=== PATIENT | male | born 1980 | race Caucasian/White ===

== ENCOUNTER 2021-01-21 12:48 | Inpatient (IN) | payer MEDICAID ==
[~2021-01-21] VITALS: Ht 175.3 cm; Wt 90.9 kg
[2021-01-21] MEDS ORDERED: dexamethasone sod phosphate 10mg/ml inj IV STA (13:43)
[2021-01-21 13:50] LABS: BASOPHILS % (AUTO) 0.2 % (0-1); EOSINOPHILS # (AUTO) 0.1 X10'3 (0-0.9); EOSINOPHILS % (AUTO) 1.2 % (0-6); HEMOGLOBIN 13.9 g/dl (14.0-17.9); LYMPHOCYTES # (AUTO) 0.7 X10'3 (1.1-4.8); LYMPHOCYTES % (AUTO) 5.5 % (21-51); MEAN CORPUSCULAR HEMOGLOBIN 32.8 PG (27.0-31.0); MEAN CORPUSCULAR HGB CONC 33.9 g/dL (33.0-36.5); MEAN CORPUSCULAR VOLUME 96.6 FL (78-98); MEAN PLATELET VOLUME 10.2 FL (7.4-10.4); MONOCYTES # (AUTO) 0.8 X10'3 (0-0.9); MONOCYTES % (AUTO) 6.8 % (2-12); NEUTROPHILS # (AUTO) 10.5 X10'3 (1.8-7.7); NEUTROPHILS % (AUTO) 86.3 % (42-75); PLATELET COUNT 413 X10'3 (140-440); RED BLOOD COUNT 4.25 X10'6 (4.70-6.10); RED CELL DISTRIBUTION WIDTH 12.6 % (11.5-14.5); WHITE BLOOD COUNT 12.2 X10'3 (4.5-11.0)
[2021-01-21 14:01] LABS: D-DIMER 3.19 MG/L FEU (0-0.50)
[2021-01-21 14:07] LABS: ALANINE AMINOTRANSFERASE 28 U/L (12-78); ALBUMIN 2.7 G/DL (3.4-5.0); ALBUMIN/GLOBULIN RATIO 0.5 (1.1-1.5); ALKALINE PHOSPHATASE 82 IU/L (46-116); ANION GAP 14 (8-16); ASPARTATE AMINO TRANSFERASE 39 U/L (10-37); BILIRUBIN,TOTAL 1.1 MG/DL (0.1-1.0); BLOOD UREA NITROGEN 16 MG/DL (7-18); BUN/CREATININE RATIO 13.7 (5.4-32.0); CALCIUM 8.6 MG/DL (8.5-10.1); CHLORIDE 101 MMOL/L (99-107); CREATININE 1.17 MG/DL (0.60-1.10); GLUCOSE 115 MG/DL (70-104); LACTATE DEHYDROGENASE 914 U/L (85-227); POTASSIUM 5.3 MMOL/L (3.5-5.1); SODIUM 138 MMOL/L (135-145); TOTAL CARBON DIOXIDE 23.3 MMOL/L (24-32); TOTAL PROTEIN 8.5 G/DL (6.4-8.2); eGFR 69 ML/MIN
[2021-01-21 14:50] LABS: C-REACTIVE PROTEIN 35.44 MG/DL (0.0-0.5)
[2021-01-21] MEDS ORDERED: LISI20TA28 PO (14:57)
[2021-01-21] MEDS ORDERED: CARV25TA2 PO (14:57)
[2021-01-21] MEDS ORDERED: iohexol 350MG/ML 100ml bottle IV ONE ×2 (15:07→15:22)
[2021-01-21] MEDS ORDERED: acetaminophen 325mg tablet PO ONE (15:25)
[2021-01-21] MEDS ORDERED: ALBU6.7H9 INH (16:17)
[2021-01-21] MEDS ORDERED: REMDESIVIR 200 MG in NS 100ml IVPB Loading dose IV ONE (16:35)
[2021-01-21] MEDS ORDERED: HYDROcodone/acetaminophen 10/325mg tab PO PRN (17:20)
[2021-01-21] MEDS ORDERED: magnesium hydroxide 30ml (MOM) UD suspension PO PRN (17:20)
[2021-01-21] MEDS ORDERED: acetaminophen 325mg tablet PO PRN ×2 (17:20)
[2021-01-21] MEDS ORDERED: mag hydrox/Alum hydrox/simeth 30ml oral suspension PO PRN (17:20)
[2021-01-21] MEDS ORDERED: HYDROcodone/acetaminophen 5mg/325mg tablet PO PRN (17:20)
[2021-01-21] MEDS ORDERED: ondansetron/PF 4mg/2ml inj IV PRN (17:20)
[2021-01-21] MEDS ORDERED: guaiFENesin/DM 10ml UD oral syrup PO PRN (17:20)
[2021-01-21] MEDS ORDERED: morphine 2 MG/ML inj. syringe IV PRN ×2 (17:20)
[2021-01-21 18:16] LABS: PHOSPHORUS 3.6 MG/DL (2.3-4.5)
[2021-01-21] MEDS: normal saline 1000ml 1,000 ML IV SCH (18:30)
[2021-01-21 18:39] LABS: TROPONIN I < 0.04 NG/ML (0.0-0.05)
[2021-01-21] MEDS: docusate sod 100mg capsule PO SCH (20:00)
[2021-01-21] MEDS: dexamethasone sod phosphate 10mg/ml inj IV SCH (20:00)
--- NOTE | 2021-01-22 03:00 | NUR ---
Titrated O2 down to 4 ltr, will cont to monitor
[2021-01-22] MEDS: normal saline 1000ml 1,000 ML IV SCH ×2 (03:20→05:22)
--- NOTE | 2021-01-22 04:39 | NUR ---
IVF HELD DUE TO PT TAKING ORAL FLUIDS AND HISTORY OF HF
--- NOTE | 2021-01-22 04:40 | NUR ---
O2 TITRATED UP TO 5 LTR PER DECREADED SPO2
[2021-01-22] MEDS ORDERED: enoxaparin 40mg/0.4ml syringe SUBCUT SCH (08:00)
[2021-01-22] MEDS: enoxaparin 40mg/0.4ml syringe SUBCUT SCH ×2 (08:01→19:50)
[2021-01-22] MEDS: dexamethasone sod phosphate 10mg/ml inj IV SCH (08:02)
[2021-01-22] MEDS: REMDESIVIR 100 MG in NS 100ml IVPB IV SCH (08:02)
[2021-01-22] MEDS: docusate sod 100mg capsule PO SCH ×2 (08:02→19:49)
[2021-01-22 11:02] LABS: HEMOGLOBIN 12.8 g/dl (14.0-17.9); WHITE BLOOD COUNT 5.9 X10'3 (4.5-11.0)
[2021-01-22 11:04] LABS: BASOPHILS % (AUTO) 0.2 % (0-1); EOSINOPHILS % (AUTO) 0 % (0-6); LYMPHOCYTES # (AUTO) 0.4 X10'3 (1.1-4.8); LYMPHOCYTES % (AUTO) 6.3 % (21-51); MEAN CORPUSCULAR HGB CONC 34.6 g/dL (33.0-36.5); MEAN CORPUSCULAR VOLUME 95.3 FL (78-98); MEAN PLATELET VOLUME 10.1 FL (7.4-10.4); MONOCYTES # (AUTO) 0.3 X10'3 (0-0.9); MONOCYTES % (AUTO) 4.3 % (2-12); NEUTROPHILS # (AUTO) 5.2 X10'3 (1.8-7.7); NEUTROPHILS % (AUTO) 89.2 % (42-75); PLATELET COUNT 372 X10'3 (140-440); RED BLOOD COUNT 3.88 X10'6 (4.70-6.10); RED CELL DISTRIBUTION WIDTH 12.6 % (11.5-14.5)
[2021-01-22 11:17] LABS: ALBUMIN 2.3 G/DL (3.4-5.0); ANION GAP 12 (8-16); BLOOD UREA NITROGEN 17 MG/DL (7-18); BUN/CREATININE RATIO 19.3 (5.4-32.0); CALCIUM 8.1 MG/DL (8.5-10.1); CHLORIDE 102 MMOL/L (99-107); CREATININE 0.88 MG/DL (0.60-1.10); GLUCOSE 227 MG/DL (70-104); POTASSIUM 4.3 MMOL/L (3.5-5.1); SODIUM 139 MMOL/L (135-145); TOTAL CARBON DIOXIDE 25.5 MMOL/L (24-32); eGFR > 90 ML/MIN
[2021-01-22 17:58] VITALS: BP 147/82
[2021-01-22 18:00] VITALS: BP 147/82
[2021-01-22] MEDS: carVEDilol 3.125mg tablet PO SCH (19:49)
[2021-01-22] MEDS: dexamethasone 6 MG in NS 50ml IV soln IV SCH (20:55)
[2021-01-23 02:49] VITALS: BP 131/77
--- NOTE | 2021-01-23 06:53 | NUR ---
Patient in room COVID 02. I have received report from SHARIFA ALTAMIRANO, and had the opportunity to ask questions and assume patient care.
[2021-01-23 08:00] VITALS: BP 136/79
[2021-01-23] MEDS: docusate sod 100mg capsule PO SCH ×2 (08:00→19:31)
[2021-01-23 08:27] LABS: BASOPHILS % (AUTO) 0.4 % (0-1); EOSINOPHILS % (AUTO) 0.1 % (0-6); HEMATOCRIT 39.5 % (42.0-52.0); LYMPHOCYTES # (AUTO) 0.5 X10'3 (1.1-4.8); MEAN CORPUSCULAR HEMOGLOBIN 32.2 PG (27.0-31.0); MEAN CORPUSCULAR HGB CONC 33.1 g/dL (33.0-36.5); MEAN CORPUSCULAR VOLUME 97.3 FL (78-98); MEAN PLATELET VOLUME 10.6 FL (7.4-10.4); MONOCYTES # (AUTO) 0.9 X10'3 (0-0.9); MONOCYTES % (AUTO) 6.7 % (2-12); NEUTROPHILS # (AUTO) 12.1 X10'3 (1.8-7.7); NEUTROPHILS % (AUTO) 88.8 % (42-75); PLATELET COUNT 433 X10'3 (140-440); RED BLOOD COUNT 4.06 X10'6 (4.70-6.10); RED CELL DISTRIBUTION WIDTH 12.7 % (11.5-14.5); WHITE BLOOD COUNT 13.6 X10'3 (4.5-11.0)
[2021-01-23 09:07] LABS: LARGE PLATELETS FEW; PLATELET ESTIMATE NORMAL
[2021-01-23 09:09] LABS: D-DIMER 3.21 MG/L FEU (0-0.50)
[2021-01-23] MEDS: dexamethasone 6 MG in NS 50ml IV soln IV SCH ×2 (09:13→19:32)
[2021-01-23] MEDS: enoxaparin 40mg/0.4ml syringe SUBCUT SCH ×2 (09:13→19:30)
[2021-01-23] MEDS: carVEDilol 3.125mg tablet PO SCH ×2 (09:28→19:30)
[2021-01-23] MEDS: lisinopril 5mg tablet PO SCH (09:29)
[2021-01-23 09:36] LABS: ALBUMIN 2.5 G/DL (3.4-5.0); ANION GAP 12 (8-16); BLOOD UREA NITROGEN 17 MG/DL (7-18); BUN/CREATININE RATIO 20.7 (5.4-32.0); CALCIUM 8.9 MG/DL (8.5-10.1); CHLORIDE 107 MMOL/L (99-107); CREATININE 0.82 MG/DL (0.60-1.10); GLUCOSE 130 MG/DL (70-104); POTASSIUM 4.5 MMOL/L (3.5-5.1); SODIUM 143 MMOL/L (135-145); TOTAL CARBON DIOXIDE 24.5 MMOL/L (24-32); eGFR > 90 ML/MIN
[2021-01-23 09:39] LABS: C-REACTIVE PROTEIN 15.52 MG/DL (0.0-0.5)
[2021-01-23] MEDS: REMDESIVIR 100 MG in NS 100ml IVPB IV SCH (09:51)
[2021-01-23 11:00] VITALS: BP 140/76
[2021-01-23 15:00] VITALS: BP 123/87
[2021-01-23 18:00] VITALS: BP 128/74
--- NOTE | 2021-01-23 18:00 | NUR ---
Patient in room COVID 02. I have received report from rosendo kennedy and had the opportunity to ask questions and assume patient care.
--- NOTE | 2021-01-23 18:28 | NUR ---
Problems reprioritized. Patient report given, questions answered & plan of care reviewed with SHARIFA ALTAMIRANO.
[2021-01-23 22:00] VITALS: BP 117/87
[2021-01-24 02:00] VITALS: BP 152/89
[2021-01-24] MEDS: carVEDilol 3.125mg tablet PO SCH ×2 (08:00→21:00)
[2021-01-24] MEDS: dexamethasone 6 MG in NS 50ml IV soln IV SCH ×2 (08:03→21:01)
[2021-01-24 08:16] LABS: BASOPHILS % (AUTO) 0.1 % (0-1); EOSINOPHILS % (AUTO) 0 % (0-6); HEMOGLOBIN 13.5 g/dl (14.0-17.9); LYMPHOCYTES # (AUTO) 0.8 X10'3 (1.1-4.8); LYMPHOCYTES % (AUTO) 6.7 % (21-51); MEAN CORPUSCULAR HEMOGLOBIN 32.3 PG (27.0-31.0); MEAN CORPUSCULAR HGB CONC 33.8 g/dL (33.0-36.5); MEAN CORPUSCULAR VOLUME 95.7 FL (78-98); MEAN PLATELET VOLUME 9.8 FL (7.4-10.4); MONOCYTES # (AUTO) 1.1 X10'3 (0-0.9); MONOCYTES % (AUTO) 9.6 % (2-12); NEUTROPHILS # (AUTO) 9.7 X10'3 (1.8-7.7); NEUTROPHILS % (AUTO) 83.6 % (42-75); PLATELET COUNT 484 X10'3 (140-440); RED BLOOD COUNT 4.18 X10'6 (4.70-6.10); RED CELL DISTRIBUTION WIDTH 12.6 % (11.5-14.5); WHITE BLOOD COUNT 11.6 X10'3 (4.5-11.0)
[2021-01-24 08:20] VITALS: BP 152/89
[2021-01-24 08:23] LABS: D-DIMER 5.35 MG/L FEU (0-0.50)
[2021-01-24 08:24] LABS: ALBUMIN 2.6 G/DL (3.4-5.0); ANION GAP 10 (8-16); BLOOD UREA NITROGEN 17 MG/DL (7-18); BUN/CREATININE RATIO 20.7 (5.4-32.0); C-REACTIVE PROTEIN 7.68 MG/DL (0.0-0.5); CALCIUM 8.7 MG/DL (8.5-10.1); CHLORIDE 106 MMOL/L (99-107); CREATININE 0.82 MG/DL (0.60-1.10); GLUCOSE 115 MG/DL (70-104); POTASSIUM 4.1 MMOL/L (3.5-5.1); SODIUM 142 MMOL/L (135-145); TOTAL CARBON DIOXIDE 26.5 MMOL/L (24-32); eGFR > 90 ML/MIN
[2021-01-24 09:13] LABS: TOTAL CELLS COUNTED 100
[2021-01-24 09:14] LABS: LARGE PLATELETS FEW; PLATELET ESTIMATE INCREASED
[2021-01-24 09:15] LABS: STOMATOCYTES FEW
[2021-01-24] MEDS: docusate sod 100mg capsule PO SCH ×2 (09:15→20:00)
[2021-01-24] MEDS: lisinopril 5mg tablet PO SCH (09:17)
[2021-01-24] MEDS: enoxaparin 40mg/0.4ml syringe SUBCUT SCH ×2 (09:18→21:00)
[2021-01-24] MEDS: REMDESIVIR 100 MG in NS 100ml IVPB IV SCH (09:28)
[2021-01-24 11:03] VITALS: BP 152/89
[2021-01-24 17:29] VITALS: BP 137/97
[2021-01-24 22:00] VITALS: BP 143/87
[2021-01-25 02:00] VITALS: BP 143/79
--- NOTE | 2021-01-25 06:30 | NUR ---
I have received report from Kat SKAGGS and had the opportunity to ask questions and assume patient care.
[2021-01-25] MEDS: dexamethasone 6 MG in NS 50ml IV soln IV SCH (08:16)
[2021-01-25] MEDS: docusate sod 100mg capsule PO SCH (08:20)
[2021-01-25] MEDS: carVEDilol 3.125mg tablet PO SCH (08:20)
[2021-01-25] MEDS: lisinopril 5mg tablet PO SCH (08:21)
[2021-01-25] MEDS: enoxaparin 40mg/0.4ml syringe SUBCUT SCH (08:21)
[2021-01-25 09:09] LABS: BASOPHILS % (AUTO) 0.1 % (0-1); EOSINOPHILS % (AUTO) 0.1 % (0-6); HEMATOCRIT 42.3 % (42.0-52.0); LYMPHOCYTES % (AUTO) 8.4 % (21-51); MEAN CORPUSCULAR VOLUME 96.9 FL (78-98); MEAN PLATELET VOLUME 9.9 FL (7.4-10.4); MONOCYTES # (AUTO) 0.5 X10'3 (0-0.9); MONOCYTES % (AUTO) 4.5 % (2-12); NEUTROPHILS # (AUTO) 9.9 X10'3 (1.8-7.7); NEUTROPHILS % (AUTO) 86.9 % (42-75); PLATELET COUNT 496 X10'3 (140-440); RED BLOOD COUNT 4.37 X10'6 (4.70-6.10); RED CELL DISTRIBUTION WIDTH 13.2 % (11.5-14.5); WHITE BLOOD COUNT 11.4 X10'3 (4.5-11.0)
[2021-01-25 09:51] LABS: PLATELET ESTIMATE INCREASED; TOTAL CELLS COUNTED 100
[2021-01-25 09:53] LABS: ALBUMIN 2.7 G/DL (3.4-5.0); C-REACTIVE PROTEIN 4.39 MG/DL (0.0-0.5); CALCIUM 8.7 MG/DL (8.5-10.1); CHLORIDE 104 MMOL/L (99-107); CREATININE 0.89 MG/DL (0.60-1.10); GLUCOSE 136 MG/DL (70-104); POTASSIUM 4.3 MMOL/L (3.5-5.1); TOTAL CARBON DIOXIDE 27.8 MMOL/L (24-32); eGFR > 90 ML/MIN
[2021-01-25 09:57] LABS: LARGE PLATELETS FEW
[2021-01-25 10:02] LABS: ANION GAP 11 (8-16); BLOOD UREA NITROGEN 14 MG/DL (7-18); BUN/CREATININE RATIO 15.7 (5.4-32.0); SODIUM 143 MMOL/L (135-145)
[2021-01-25] MEDS: REMDESIVIR 100 MG in NS 100ml IVPB IV SCH (10:07)
[2021-01-25 10:12] VITALS: BP 123/93
[2021-01-25 11:11] LABS: D-DIMER 4.08 MG/L FEU (0-0.50)
[2021-01-25 11:16] VITALS: BP 132/84
--- NOTE | 2021-01-25 13:38 | NUR ---
O2 Sat at rest on room air: 85% If below 89%: Recovery O2 Sat at rest on 2 LPM: 91% via NC (mask/nasal cannula, etc..) No further documentation is necessary. If O2 Sat did not drop below 89% on room air,ambulate patient on room air. O2 Sat while ambulating on room air:___% Recovery O2 Sat while ambulating on ___LPM:___% No further documentation is necessary. If patient does not drop below 89% while ambulating, he/she does not qualify for home O2.
[2021-01-25] MEDS ORDERED: DEXA1TAB PO (14:17)
[2021-01-25] MEDS ORDERED: ASPI-1264 PO (14:24)
--- NOTE | 2021-01-25 14:43 | NUR ---
Initial: Pt admitted w/ +Covid and SOB. Pt able to eat well on Regular diet, mostly 100% of meals meeting needs. LBM 01/24 noted to be liquid. No nutritional intervention implemented at this time, will continue to monitor. Recs: 1. Continue regular diet as tolerated 2. Bowel care per rx 3. Weekly wts Addendum: 01/25/21 at [address] Amended: Links added.
--- NOTE | 2021-01-25 15:33 | NUR ---
Patient is discharged on paper, all education completed. Patient had the opportunity to ask questions, verbal acknowledgement completed by patient of all understanding. Patient knows to quarantine after discharge, pamphlet in patient education folder. Medication scrips sent to pharmacy at [facility]. Patient aware to pickle maker medications after discharge and aware when to take next doses, home medications as well. Patient up out of bed to restroom on his own and tolerated well. Waiting on the statues of home O2, CM will be on contact of when/if O2 will be available for patient.
--- NOTE | 2021-01-25 16:03 | NUR ---
O2 deliverd by [facility], patient educated on machine and how to operate.
[2021-01-25 16:06] VITALS: BP 115/78
--- NOTE | 2021-01-25 16:27 | NUR ---
I have received report from Kat SKAGGS and had the opportunity to ask questions and assume patient care.
== END 2021-01-25 18:08 | disposition home or self-care (01) | DRG 137 ==
LOC: ER 12:49 → ED HOLD 17:25 → COVID IP 01-22 17:10
PROVIDERS: ADMIT Internal Medicine; ATTEND Internal Medicine
PROC: XW033E5 Introduction of Remdesivir Anti-infective into Peripheral Vein, Percutaneous Approach, New Technology Group 5 (ICD-10-PCS; principal; 2021-01-21)
PROC: B32T1ZZ Computerized Tomography (CT Scan) of Left Pulmonary Artery using Low Osmolar Contrast (ICD-10-PCS; 2021-01-21)
PROC: B3201ZZ Computerized Tomography (CT Scan) of Thoracic Aorta using Low Osmolar Contrast (ICD-10-PCS; 2021-01-21)
PROC: B32S1ZZ Computerized Tomography (CT Scan) of Right Pulmonary Artery using Low Osmolar Contrast (ICD-10-PCS; 2021-01-21)
DX: U07.1 COVID-19 (principal); J96.01 Acute respiratory failure with hypoxia; J12.82 Pneumonia due to coronavirus disease 2019; N17.0 Acute kidney failure with tubular necrosis; D68.59 Other primary thrombophilia; E86.0 Dehydration; I50.22 Chronic systolic (congestive) heart failure; E87.5 Hyperkalemia; Z79.82 Long term (current) use of aspirin; Z79.899 Other long term (current) drug therapy; Z87.891 Personal history of nicotine dependence
CPT/HCPCS: 36415; 71045; 71275; 80048; 80053; 83605; 83615; 83880; 84100; 84145; 84484; 85007; 85008; 85025; 85379; 86140; 87040; 87081; 93005; 99285; G0378; J1100; J1650; J7030; Q9967